=== PATIENT | female | born 1960 | race Caucasian/White ===

== ENCOUNTER → 2017-08-16 | Outpatient (REF) | payer BC ==
[2017-08-24 13:33] LABS: HPV HYBRID CAPTURE II Negative (Negative)
== END ==
LOC: M LAB REF 09:48
DX: Z01.419 Encounter for gynecological examination (general) (routine) without abnormal findings (principal); Z11.51 Encounter for screening for human papillomavirus (HPV)

== ENCOUNTER → 2017-09-24 | Outpatient (REF) | payer BC ==
[2017-09-24 12:38] LABS: TOTAL 25(OH) VITAMIN D 36.6 NG/ML (30.0-100.0)
[2017-09-24 12:49] LABS: ALBUMIN 3.6 GM/DL (3.2-5.2); ALBUMIN/GLOBULIN RATIO 1.03 (1.00-1.93); ALKALINE PHOSPHATASE 80 U/L (45-117); ALT/SGPT 40 U/L (12-78); ANION GAP 7 MEQ/L (8-16); AST/SGOT 21 U/L (7-37); BILIRUBIN,TOTAL 0.5 MG/DL (0.2-1.0); BLOOD UREA NITROGEN 13 MG/DL (7-18); CALCIUM LEVEL 9.2 MG/DL (8.5-10.1); CARBON DIOXIDE LEVEL 27 MEQ/L (21-32); CHLORIDE LEVEL 110 MEQ/L (98-107); CHOLESTEROL LEVEL 202 MG/DL (<200); CREATININE FOR GFR 0.69 MG/DL (0.55-1.30); GLOMERULAR FILTRATION RATE > 60.0 (>51); GLUCOSE, FASTING 95 MG/DL (70-100); HDL CHOLESTEROL 44 MG/DL (>40); NON-HDL-C 158 MG/DL; POTASSIUM SERUM 4.4 MEQ/L (3.5-5.1); SODIUM LEVEL 144 MEQ/L (136-145); THYROID STIMULATING HORMONE 0.254 uIU/ML (0.358-3.740); TOTAL PROTEIN 7.1 GM/DL (6.4-8.2); TRIGLYCERIDES LEVEL 145 MG/DL (<150)
[2017-09-24 13:02] LABS: BASO # 0.1 10^3/uL (0.0-0.2); BASO % 0.8 % (0.0-1.0); EOS # 0.2 10^3/uL (0.0-0.50); EOS % 3.4 % (0.0-3.0); HEMATOCRIT 44.8 % (36.0-47.0); HEMOGLOBIN 14.7 g/dl (12.0-15.5); LYMPH # 1.2 10^3/uL (1.5-4.5); LYMPH % 20.2 % (24.0-44.0); MEAN CORPUSCULAR HEMOGLOBIN 28.3 pg (27.0-33.0); MEAN CORPUSCULAR HGB CONC 32.8 g/dl (32.0-36.5); MEAN CORPUSCULAR VOLUME 86.3 fl (80.0-96.0); MONO # 0.6 10^3/uL (0.0-0.8); MONO % 9.4 % (0.0-5.0); NEUTROPHILS # 3.9 10^3/uL (1.8-7.7); NEUTROPHILS % 65.2 % (36.0-66.0); PLATELET COUNT, AUTOMATED 305 10^3/uL (150-450); RED BLOOD COUNT 5.19 10^6/uL (4.00-5.40); RED CELL DISTRIBUTION WIDTH 13.2 % (11.5-14.5); WHITE BLOOD COUNT 5.9 10^3/uL (4.0-10.0)
== END ==
LOC: M LABDRAW1 08:33
DX: Z00.00 Encounter for general adult medical examination without abnormal findings (principal)
CPT/HCPCS: 84443

== ENCOUNTER → 2019-09-16 | Outpatient (CLI) | payer BC ==
[2019-11-09 11:17] LABS: BASO # 0.1 10^3/uL (0.0-0.2); BASO % 0.9 % (0.0-1.0); EOS # 0.3 10^3/uL (0.0-0.5); EOS % 4.5 % (0.0-3.0); HEMATOCRIT 44.6 % (36.0-47.0); HEMOGLOBIN 14.4 g/dl (12.0-15.5); LYMPH % 30.3 % (24.0-44.0); MEAN CORPUSCULAR HEMOGLOBIN 27.6 pg (27.0-33.0); MEAN CORPUSCULAR HGB CONC 32.3 g/dl (32.0-36.5); MEAN CORPUSCULAR VOLUME 85.4 fl (80.0-96.0); MONO # 0.5 10^3/uL (0.0-0.8); MONO % 8.3 % (0.0-5.0); NEUTROPHILS # 3.6 10^3/uL (1.5-8.5); NEUTROPHILS % 55.8 % (36.0-66.0); PLATELET COUNT, AUTOMATED 325 10^3/uL (150-450); RED BLOOD COUNT 5.22 10^6/uL (4.00-5.40); WHITE BLOOD COUNT 6.5 10^3/uL (4.0-10.0)
[2019-11-09 11:18] LABS: ERYTHROCYTE SEDIMENTATION RATE 10 mm/hr (0-30)
[2019-11-11 02:39] LABS: ALT/SGPT 34 U/L (12-78); BILIRUBIN,TOTAL 0.7 MG/DL (0.2-1.0); BLOOD UREA NITROGEN 17 MG/DL (7-18); CALCIUM LEVEL 9.5 MG/DL (8.5-10.1); CARBON DIOXIDE LEVEL 28 MEQ/L (21-32); CHLORIDE LEVEL 109 MEQ/L (98-107); CREATININE FOR GFR 0.66 MG/DL (0.55-1.30); FREE T4 1.08 NG/DL (0.76-1.46); GLOMERULAR FILTRATION RATE > 60.0 (>51); GLUCOSE, FASTING 87 MG/DL (70-100); POTASSIUM SERUM 4.4 MEQ/L (3.5-5.1); RHEUMATOID FACTOR QUANT 20.5 IU/ML (<15.0); SODIUM LEVEL 140 MEQ/L (136-145); THYROID STIMULATING HORMONE 0.894 uIU/ML (0.358-3.740); TOTAL PROTEIN 7.6 GM/DL (6.4-8.2)
[2019-11-11 12:29] LABS: ANTINUCLEAR ANTIBODIES DIRECT See Separate Report
[2019-12-01 15:12] LABS: Lyme Disease IgG/IgM Antibodie See Separate Report
== END ==
LOC: M LAB 08:45
PROVIDERS: ATTEND Family Medicine
DX: R60.9 Edema, unspecified (principal)

== ENCOUNTER → 2019-09-29 | Outpatient (REF) | payer BC ==
[2019-09-29 16:34] LABS: ALBUMIN 3.9 GM/DL (3.2-5.2); ALT/SGPT 28 U/L (12-78); BILIRUBIN,TOTAL 0.6 MG/DL (0.2-1.0); BLOOD UREA NITROGEN 12 MG/DL (7-18); C REACTIVE PROTEIN QUANTITATIV 0.43 MG/DL (0.00-0.30); CALCIUM LEVEL 9.3 MG/DL (8.5-10.1); CARBON DIOXIDE LEVEL 29 MEQ/L (21-32); CHLORIDE LEVEL 108 MEQ/L (98-107); CREATININE FOR GFR 0.72 MG/DL (0.55-1.30); GLOMERULAR FILTRATION RATE > 60.0 (>51); GLUCOSE, FASTING 109 MG/DL (70-100); POTASSIUM SERUM 4.3 MEQ/L (3.5-5.1); RHEUMATOID FACTOR QUANT 22.1 IU/ML (<15.0); SODIUM LEVEL 140 MEQ/L (136-145); TOTAL PROTEIN 7.1 GM/DL (6.4-8.2)
[2019-09-30 23:25] LABS: ANTINUCLEAR ANTIBODIES DIRECT Negative (Negative); CYCLIC CITRULLINATED PEPTIDE 4 units (0-19)
== END ==
LOC: M LABDRWAD 09:13
PROVIDERS: ATTEND Family Medicine
DX: M25.461 Effusion, right knee (principal); M05.9 Rheumatoid arthritis with rheumatoid factor, unspecified

== ENCOUNTER → 2019-11-18 | Outpatient (REF) | payer BC ==
[2019-11-18 14:12] LABS: HEPATITIS B SURFACE ANTIBODY NEGATIVE (POSITIVE)
[2019-11-18 14:22] LABS: HEPATITIS B SURFACE ANTIGEN NEGATIVE (NEGATIVE)
[2019-11-18 14:49] LABS: HEPATITIS C VIRUS ABY INDEX 0.1 INDEX (<0.8)
== END ==
LOC: M SFHCRHEU 10:19
PROVIDERS: ATTEND Internal Medicine
DX: R76.8 Other specified abnormal immunological findings in serum (principal); R79.82 Elevated C-reactive protein (CRP)

== ENCOUNTER → 2019-12-17 | Outpatient (CLI) | payer BC ==
--- NOTE | 2019-12-17 13:08 | REP ---
INDICATION: INTERNAL DERANGEMENT RT KNEE. COMPARISON: Comparison radiographs of the right knee September 09, 2019.. TECHNIQUE: Axial, coronal and sagittal imaging planes utilized. T1, proton density and T2 weighted scans are obtained with and without fat saturation in the usual fashion. FINDINGS: Cortical and medullary bone signal intensity are normal. There is a small joint effusion and a small Edgar's cyst is seen in the posteromedial popliteal soft tissues. There is edema in the prepatellar and prepatellar tendon soft tissues question patellar tendinitis. The patellar tendon itself is intact. Quadriceps tendon is unremarkable. Anterior and posterior cruciate ligaments have an intact appearance. There is no evidence of medial or lateral collateral ligament disruption. There is an area of increased signal intensity in the posterior body of the right medial meniscus along its inferior articular margin consistent with an early tear in this location. This is visible on proton density and turbo spin echo T2 weighted scans. No displacement is scleral material is seen. Medial meniscus is otherwise unremarkable. No lateral meniscal tear is appreciated. There is chondromalacia in the medial femoral condyle mild in degree. No full-thickness articular cartilage lesion is appreciated. Study is otherwise unremarkable. IMPRESSION: Early tear pattern posterior body medial meniscus. Small amount of joint fluid and a small Edgar's cyst. Prepatellar and prepatellar tendon soft tissue edema consistent with patellar tendinitis. Mild chondromalacia pattern medial femoral condyle. <Electronically signed by Ilan Piña > 12/17/19 9490
== END ==
LOC: M RAD 11:15
PROVIDERS: ATTEND Internal Medicine
DX: M23.91 Unspecified internal derangement of right knee (principal); S83.241A Other tear of medial meniscus, current injury, right knee, initial encounter; X58.XXXA Exposure to other specified factors, initial encounter; Y92.89 Other specified places as the place of occurrence of the external cause

== ENCOUNTER → 2020-10-22 | Outpatient (CLI) | payer BC | LOC: M LABSMTC 10:34 | PROVIDERS: ATTEND Anesthesiology | DX: Z01.812 Encounter for preprocedural laboratory examination (principal); Z20.822 Contact with and (suspected) exposure to COVID-19 ==

== ENCOUNTER 2020-10-27 09:01 | Day surgery (SDC) | payer BC ==
[~2020-10-27] VITALS: Ht 162.6 cm; Wt 88.5 kg
[~2020-10-27 09:01] MED LIST: LIDOCAINE 2% 100MG/5ML SDV (FOR ANES.) As Ordered ONE; LR 1,000 ML IV ONE; MIDAZOLAM INJ 2MG/2ML VIAL (J2250 PER 1MG) As Ordered ONE; ceFAZolin SOD 1 GM in D5W MINI-BAG PLUS 50 ML IV ONE; propofoL 200 MG/20 ML VIAL As Ordered ONE
[2020-10-27] MEDS ORDERED: fentaNYL 100 MCG/2 ML INJECTION (J3010) As Ordered ONE (09:22)
[2020-10-27] MEDS ORDERED: BUPIVACAINE/EPIN 0.25% 30 ML VIAL As Ordered ONE (09:39)
[2020-10-27] MEDS ORDERED: PHENYLephrine 500MCG 5ML (100MCG/ML) SYRINGE As Ordered ONE (10:06)
[2020-10-27] MEDS ORDERED: ePHEDrine SULFATE 25 MG/5 ML(5MG/ML) SYRINGE As Ordered ONE (10:06)
--- NOTE | 2020-10-27 10:43 | ROOPDOC ---
[facility] Report Of Operation Report of Operation DATE OF PROCEDURE: 10/27/20 PREPROCEDURE DIAGNOSES: Right carpal tunnel syndrome. POSTPROCEDURE DIAGNOSES: Same. PROCEDURE PERFORMED: Right open carpal tunnel release. SURGEON: Dr. Jhon Villalba MD CAN MAKER: ANESTHESIA: Local/MAC Dr handy. ESTIMATED BLOOD LOSS: Approximately 5 mL. COMPLICATIONS: None. REMARKS: None. 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 We discussed the pros and cons risks and benefits of nonoperative versus right open carpal tunnel release. She wished to proceed. She had no further questions. I marked the right upper extremity.. DESCRIPTION OF PROCEDURE: Patient was brought to the operating theater. They were placed supine on the operating room table. Hand table was used. Limb was prepped and draped in the usual sterile fashion. I used chlorhexidine-based prep solution allowing over 3 minutes drying time prior to draping. 2 g of IV Ancef was given prior to starting the case. Local/MAC anesthesia was used. Preoperative timeout was performed confirming the site the patient and the surgery. I began by infiltrating 4 mL of 0.25 percent Marcaine with epinephrine in and around the proposed incision site. This was on the palmar surface just distal to the wrist crease longitudinally in line with the radial border fourth digit. The incision length was approximately 2 cm. I allowed the local anesthetic time to work. I carried the dissection down through skin and subcutaneous tissue to meticulous hemostasis. I incised the palmar fascia in line with the skin incision. I incised the transverse carpal ligament in line with the skin incision fully proximally and distally. Nerve appeared in continuity throughout the case. I thoroughly irrigated the wound with normal saline. I closed the subcutaneous tissues with 2-0 Vicryl sutures and the skin with 3-0 Ethilon in a horizontal mattress fashion. Wound cleaned with wet and dry dressing followed by application of non stick dressing, 4 x 8 gauze and overwrapped with Sajan type dressing. Patient was woken up from their sedation and transferred off the operating room table and taken to postanesthetic care unit in stable condition. All sponge, needle, instrument counts were correct. No complications. The patient is to start immediate hand wrist and elbow exercises but avoid heavy lifting and gripping-type activities for the first 6 weeks. They will be discharged home according to day surgery criteria. They can change the dressing postoperative day 1 and avoid showering over top or getting it wet for the first 14 days. Follow-up in the office in 2 weeks' time. Postoperative wound instructions were given. It was recommended to keep the wound clean and dry. Dressing changes as needed. It was reinforced with the patient that they should call us or be seen immediately for redness, drainage, or fever. Risk factors for harms from taking opioid medications discussed and assessed including but not limited to personal or family history of substance use disorder, anxiety or depression, , age 65 or older, COPD or other underlying respiratory conditions, and renal or hepatic insufficiency. Discussed with patient concerns and determined any harms they may experience or be currently experiencing such as nausea or constipation, feeling sedated or confused, breathing interruptions during sleep, or taking or craving more o pioids than prescribed or difficulty controlling use (addiction). Discussed early warning signs of overdose including confusion, sedation, slurred speech, abnormal gait. JHON VILLALBA MD Oct 27, 2020 10:43
[2020-10-27 11:10] VITALS: BP 149/73
== END 2020-10-27 11:43 | disposition home or self-care (01) ==
LOC: M SDC 09:01
PROVIDERS: ATTEND Orthopaedic Surgery Sports Medicine
DX: G56.01 Carpal tunnel syndrome, right upper limb (principal)
CPT/HCPCS: 64721; J0690; J2250; J2370; J3010

== ENCOUNTER → 2021-01-07 | Outpatient (CLI) | payer BC | LOC: M LABSMTC 11:11 | PROVIDERS: ATTEND Anesthesiology | DX: Z01.812 Encounter for preprocedural laboratory examination (principal); Z20.822 Contact with and (suspected) exposure to COVID-19 ==

== ENCOUNTER → 2021-01-12 | Day surgery (SDC) | payer BC ==
[~2021-01-12] VITALS: Ht 162.6 cm; Wt 91.1 kg
[~2021-01-12] MED LIST changes: +ACETAMINOPHEN 1000MG 100ML IV BTL (OFIRMEV) (J0131 PER 10MG) As Ordered ONE; +BUPIVACAINE/EPIN 0.25% 30 ML VIAL As Ordered ONE; +GLYCOPYRROLATE INJ 0.2 MG/ML 2 ML VIAL As Ordered ONE; +KETAMINE HCL 200 MG/20 ML VIAL As Ordered ONE; +KETOROLAC 60MG 2ML VIAL As Ordered ONE; +LIDOCAINE 1% MDV 20ML VIAL SQ PRN; +ONDANSETRON 4MG/2ML VIAL As Ordered ONE; -ceFAZolin SOD 1 GM in D5W MINI-BAG PLUS 50 ML IV ONE; +ceFAZolin SOD 2 GM in IV 1 EA IV ONE; +dexameTHASONE 4 MG/ML 1ML VIAL (J1100 PER 1MG) As Ordered ONE; +fentaNYL 100 MCG/2 ML INJECTION (J3010) As Ordered ONE
--- OUTSIDE RECORDS SUMMARY | 2021-01-12 12:44 | CCD ---
Author Author [facility] Organization [facility] Address Unknown Phone Unavailable Care Team Providers Care Potato Spotter Name Role Phone Babatunde Sheffield MD Unavailable Unavailable MollisonBabatunde MD Unavailable Unavailable MollisonBabatunde MD Unavailable Unavailable Mollison, Babatunde Ferreira MD Unavailable Unavailable MollisonBabatunde MD Unavailable Unavailable MollisonBabatunde MD Unavailable Unavailable MollisonBabatunde MD Unavailable Unavailable MollisonBabatunde MD Unavailable Unavailable Mollison, Babtaunde Ferreira MD Unavailable Unavailable Mollison, Babatunde Ferreira MD Unavailable Unavailable Mollison, Babatunde Ferreira MD Unavailable Unavailable Mollison, Babatunde Ferreira MD Unavailable Unavailable Mollison, Babatunde Ferreira MD Unavailable Unavailable Mollison, Babatunde Ferreira MD Unavailable Unavailable Mollison, Babatunde Ferreira MD Unavailable Unavailable MollisonBabatunde MD Unavailable Unavailable MollisonBabatunde MD Unavailable Unavailable MollisonBabatunde MD Unavailable Unavailable MollisonBabatunde MD Unavailable Unavailable MollisonBabatunde MD Unavailable Unavailable MollisonBabatunde MD Unavailable Unavailable MollisonBabatunde MD Unavailable Unavailable MollisonBabatunde MD Unavailable Unavailable MollisonBabatunde MD Unavailable Unavailable MollisonBabatunde MD Unavailable Unavailable Mollison, Babatunde Ferreira MD Unavailable Unavailable Mollison, Babatunde Ferreira MD Unavailable Unavailable Mollison, Babatunde Ferreira MD Unavailable Unavailable Mollison, Babatunde Ferreira MD Unavailable Unavailable Mollison, Babatunde Ferreira MD Unavailable Unavailable Mollison, Babatunde Ferreira MD Unavailable Unavailable Re-disclosure Warning The records that you are about to access may contain information from federally-assisted alcohol or drug abuse programs. If such information is present, then the following federally mandated warning applies: This information has been disclosed to you from records protected by federal confidentiality rules (42 CFR part 2). The federal rules prohibit you from making any further disclosure of this information unless further disclosure is expressly permitted by the written consent of the person to whom it pertains or as otherwise permitted by 42 CFR part 2. A general authorization for the release of medical or other information is NOT sufficient for this purpose. The Federal rules restrict any use of the information to criminally investigate or prosecute any alcohol or drug abuse patient.The records that you are about to access may contain highly sensitive health information, the redisclosure of which is protected by Article 27-F of the [facility] Public Health law. If you continue you may have access to information: Regarding HIV / AIDS; Provided by facilities licensed or operated by the [facility] Office of Mental Health; or Provided by the [facility] Office for People With Developmental Disabilities. If such information is present, then the following [facility] mandated warning applies: This information has been disclosed to you from confidential records which are protected by state law. State law prohibits you from making any further disclosure of this information without the specific written consent of the person to whom it pertains, or as otherwise permitted by law. Any unauthorized further disclosure in violation of state law may result in a fine or shelter sentence or both. A general authorization for the release of medical or other information is NOT sufficient authorization for further disc losure. Family History Family Member Name Family Member Gender Family Member Status Date o f Status Description Data Source(s) Unknown Unknown Problem MEDENT ([facility] Unknown Male Problem MEDENT ([facility] ) Encounters Encounter Providers Location Date Indications Data Source(s ) Outpatient Attender: Jhon Young/Mackenzie/Neeraj/Re indl 12/07/2020 08:45:00 AM EDT MEDENT ([facility]) Office Visit Attender: Jhon Young/Mackenzie/Neeraj/Re indl 11/09/2020 08:45:00 AM EDT MEDENT ([facility]) Outpatient [address] [facility], [facility] [address] 08/30/2020 12:00:00 AM EDT eCW1 ([facility]) Outpatient Attender: Jhon Young/Mackenzie/Neeraj/Re indl 08/16/2020 11:15:00 AM EDT MEDENT ([facility], ) Outpatient Attender: Jhon Young/Mackenzie/Neeraj/Re indl 07/13/2020 01:45:00 PM EDT MEDENT ([facility], ) Unknown [address] [facility] [address] 06/25/2020 12:00:00 AM EDT eCW1 ([facility]) Unknown [address] [facility] [place] [address] 04/14/2020 12:00:00 AM EST eCW1 ([facility]) Outpatient [address] [facility] [place] [address] 04/01/2020 12:00:00 AM EST eCW1 ([facility]) Unknown [address] [facility] [place] [address] 12/01/2019 12:00:00 AM EDT eCW1 ([facility]) Outpatient [address] [facility] [place] [address] 11/18/2019 12:00:00 AM EDT eCW1 ([facility]) Unknown [address] [facility] [place] [address] 11/17/2019 12:00:00 AM EDT eCW1 ([facility]) Medications Medication Brand Name Start Date Product Form Dose Route Admi nistrative Instructions Pharmacy Instructions Status Indications Reaction Description Data Source(s) No Active Medications 11/09/2020 12:00:00 AM EDT active MEDENT ([facility], ) Acetaminophen 325 MG / Oxycodone Hydrochloride 5 MG Or al Tablet [Percocet] Percocet 10/27/2020 12:00:00 AM EDT ORAL completed MEDENT ([facility], ) No Active Medications 07/13/2020 12:00:00 AM EDT completed MEDENT ([facility], ) Insurance Providers Payer name Policy type / Coverage type Policy ID Covered libertarian ID Covered libertarian's relationship to smith Policy Smith Plan Information BS [employer] [id number] Family Dependent [id number] BS [employer] [id number] Family Dependent [id number] [place] P[place] 302/307 [id number] BCBS RISHABH O [id number] SP [id number] [place] BCBS B [id number] S [id number] O UNAVAILABLE UNA[place]ILA BLE [place] 210/710 [id number] SP [id number] [place] 210/710 [id number] SP [id number] EXCELLUS BCBS B [id number] P VYS [id number] BS Of [facility] ([facility]) VYS2 [id number] Family Dependent [id number] BS Of [facility] ([facility]) VYS2 [id number] Family Dependent [id number] BS Of [facility] ([facility]) VYS2 [id number] Family Dependent [id number] BS Of [facility] ([facility]) VYS2 [id number] Family Dependent [id number] BS Of [facility] ([facility]) VYS2 [id number] Family Dependent [id number] [facility] [id number] SP [id number] BS Of [facility] Maintenance Organization (O) [id number] Family Dependent [facility] [id number] SP [id number] [place] O 302/307 [id number] SP [id number] Problems, Conditions, and Diagnoses Code Display Name Description Problem Type Effective Dates Data Source(s) R79.82 [id number] Elevated C-reactive protein (CRP) Prob lala 11/18/2019 12:00:00 AM EDT eCW1 ([facility]) M23.91 [id number] Internal derangement of right knee Pro blem 11/18/2019 12:00:00 AM EDT eCW1 ([facility]) I73.00 [id number] Raynaud's disease without gangrene Proble m 11/18/2019 12:00:00 AM EDT eCW1 ([facility]) M19.041 [id number] Primary osteoarthritis, right hand Pro blem 11/18/2019 12:00:00 AM EDT eCW1 ([facility]) M19.042 [id number] Primary osteoarthritis, left hand Prob lala 11/18/2019 12:00:00 AM EDT eCW1 ([facility]) Surgeries/Procedures Procedure Description Date Indications Data Source(s) OFFICE OUTPATIENT VISIT 25 MINUTES 12/07/2020 12:00:00 AM EDT MEDSUN ([facility], ) Neuroplasty/Transposition, Median Nerve AT Carpal Tunnel 10/27/2020 12:00:00 AM EDT MEDENT ([facility], ) OFFICE OUTPATIENT VISIT 25 MINUTES 08/16/2020 12:00:00 AM EDT MEDSUN ([facility], ) Needle electromyography, each extremity, with related paraspinal areas, when performed, done with nerve conduction, amplitude and latency/velocity study; complete, five or more muscles studied, innervated by three or more nerves or four or more spinal levels (list separately in addition to the code for primary procedure). 08/05/2020 12:00:00 AM EDT MEDEN T ([facility], ) Needle electromyography, each extremity, with related paraspinal areas, when performed, done with nerve conduction, amplitude and latency/velocity study; complete, five or more muscles studied, innervated by three or more nerves or four or more spinal levels (list separately in addition to the code for primary procedure). 08/05/2020 12:00:00 AM EDT MEDEN T ([facility], ) Needle Electromyography Non Extremity Done With Nerve Conduc tion 08/05/2020 12:00:00 AM EDT MEDENT ([facility], ) Needle Electromyography Non Extremity Done With Nerve Conduc tion 08/05/2020 12:00:00 AM EDT MEDENT ([facility], ) 00128 Nerve conduction studies 13 or more studies NEW 201208/05/2020 12:00:00 AM EDT MEDENT ([facility], ) OFFICE OUTPATIENT NEW 30 MINUTES 07/13/2020 12:00:00 A M EDT MEDENT ([facility], ) Results ID Date Data Source [id number] 01/07/2021 11:05:00 AM EST [facility] Name Value Range Interpretation Code Description Data Radha rce(s) Supporting Document(s) SARS-CoV-2 (COVID-19) RNA [Presence] in Respiratory specimen by СВЕТЛАНА with probe detection Not Detected [facility] This lab was ordered by [facility] and reported by [facility]. ID Date Data Source HEPATITIS B CORE ANTIBODY IGG 11/20/2019 09:32:55 AM EDT eCW 1 ([facility]) Name Value Range Interpretation Code Description Data Radha rce(s) Supporting Document(s) Negative HEPATITIS B CORE ANTIBODY IGG eCW1 ([facility]) ID Date Data Source HEPATITIS C ANTIBODY INDEX 11/18/2019 04:28:40 AM EDT eCW1 ( [facility]) Name Value Range Interpretation Code Description Data Radha rce(s) Supporting Document(s) 0.1 HEPATITIS C VIRUS HAIM INDEX eC W1 ([facility]) ID Date Data Source HEPATITIS B SURFACE ANTIGEN 11/18/2019 04:28:40 AM EDT eCW1 ([facility]) Name Value Range Interpretation Code Description Data Radha rce(s) Supporting Document(s) NEGATIVE HEPATITIS B SURFACE ANTIG EN eCW1 ([facility]) ID Date Data Source HEPATITIS B SURFACE ANTIBODY 11/18/2019 04:28:40 AM EDT eCW1 ([facility]) Name Value Range Interpretation Code Description Data Radha rce(s) Supporting Document(s) NEGATIVE HEPATITIS B SURFACE ANTIB FELICIA eCW1 ([facility]) ID Date Data Source C REACTIVE PROTEIN QUANTITATIV (At [facility]) 11/18/2019 04:28 :40 AM EDT eCW1 ([facility]) Name Value Range Interpretation Code Description Data Radha rce(s) Supporting Document(s) 0.30 C REACTIVE PROTEIN QUANTITATIV eCW1 ([facility]) Procedure Social History Code Duration Value Status Description Data Source(s ) Smoking 08/30/2020 12:00:00 AM EDT Former Smoker completed Former Smoker eCW1 ([facility]) Smoking 04/01/2020 12:00:00 AM EST Former Smoker completed Former Smoker eCW1 ([facility]) Smoking 04/01/2020 12:00:00 AM EST Former Smoker completed Former Smoker eCW1 ([facility]) Smoking 04/01/2020 12:00:00 AM EST Former Smoker completed Former Smoker eCW1 ([facility]) Smoking 11/18/2019 12:00:00 AM EDT Former Smoker completed Former Smoker eCW1 ([facility]) Smoking 11/18/2019 12:00:00 AM EDT Former Smoker completed Former Smoker eCW1 ([facility]) Smoking 11/18/2019 12:00:00 AM EDT Former Smoker completed Former Smoker eCW1 ([facility]) Vital Signs ID Date Data Source UNK Name Value Range Interpretation Code Description Data Source(s) Body temperature 98.4 [degF] 98.4 [degF] MEDENT ([facility], ) Body temperature 98.4 [degF] 98.4 [degF] MEDENT ([facility], ) Body temperature 97.7 [degF] 97.7 [degF] MEDENT ([facility], ) Body weight 195.4 [lb_av] 195.4 [lb_av] eCW1 ([facility]) Body weight 88.6 kg 88.6 kg eCW1 ([facility]) Body height 64 [in_i] 64 [in_i] eCW1 ([facility]) Body mass index (BMI) [Ratio] 33.54 kg/m2 33.54 kg/m2 eCW1 ([facility]) Heart rate 77 /min 77 /min eCW1 ([facility]) Respiratory rate 18 /min 18 /min eCW1 ([facility]) Body temperature 98.4 [degF] 98.4 [degF] eCW1 ( [facility]) Systolic blood pressure 152 mm[Hg] 152 mm[Hg] e CW1 ([facility]) Diastolic blood pressure 88 mm[Hg] 88 mm[Hg] eCW1 ([facility]) Body temperature 98.2 [degF] 98.2 [degF] MEDENT ([facility], ) Body temperature 98.2 [degF] 98.2 [degF] MEDENT ([facility]) Body temperature 97.1 [degF] 97.1 [degF] MEDENT ([facility], ) Body temperature 97.1 [degF] 97.1 [degF] MEDENT ([facility], ) Body weight 206.0 [lb_av] 206.0 [lb_av] eCW1 ([facility]) Body weight 93.4 kg 93.4 kg eCW1 ([facility]) Body height 64 [in_i] 64 [in_i] eCW1 ([facility]) Body mass index (BMI) [Ratio] 35.36 kg/m2 35.36 kg/m2 eCW1 ([facility]) Heart rate 90 /min 90 /min eCW1 ([facility]) Respiratory rate 18 /min 18 /min eCW1 ([facility]) Body temperature 97.1 [degF] 97.1 [degF] eCW1 ( [facility]) Systolic blood pressure 140 mm[Hg] 140 mm[Hg] e CW1 ([facility]) Diastolic blood pressure 86 mm[Hg] 86 mm[Hg] eCW1 ([facility]) Body weight 210.2 [lb_av] 210.2 [lb_av] eCW1 ([facility]) Body weight 95.3 kg 95.3 kg eCW1 ([facility]) Body height 64 [in_i] 64 [in_i] eCW1 ([facility]) Body mass index (BMI) [Ratio] 36.08 kg/m2 36.08 kg/m2 W1 ([facility]) Heart rate 87 /min 87 /min eCW1 ([facility]) Body temperature 98.2 [degF] 98.2 [degF] eCW1 ( [facility]) Systolic blood pressure 130 mm[Hg] 130 mm[Hg] e CW1 ([facility]) Diastolic blood pressure 68 mm[Hg] 68 mm[Hg] eCW1 ([facility])
--- OUTSIDE RECORDS SUMMARY | 2021-01-12 12:44 | CCD | Continuity of Care Document ---
Author Author Kailyn VILLALBA MD Organization Unknown Address [address] [place] [address] , [facility] [address] [place] [address] Phone [phone] Care Team Providers Care Disaster Or Damage Control Specialist Name Role Phone Araceli Barros D.O. AUTM [phone] Problems Description No Information Available Social History Type Date Description Comments Sex Unknown ETOH Use 1-2 A Month Tobacco Use Start: Unknown End: Unknown Patient is a former smoker Recreational Drug Use Denies Drug Use Allergies and adverse reactions Description No Known Drug Allergies Medications Active Medications SIG Qnty Indications Ordering Provide r Date No Active Medications Unknown 06/2020 History Medications Percocet 5-325mg Tablets 1 by mouth every 4 hours as needed post op pain 14tabs Peter Sharpe 10/27/2020 - 11/10/2019 No Active Medications Unknown 09/2020 - 10/27/2020 Immunizations Description No Information Available Vital Signs Date Vital Result Comment 12/07/2020 9:01am Body Temperature 98.4 F 12/07/2020 8:57am Body Temperature 98.4 F Results Description No Information Available Procedures Date Code Description Status 10/27/2020 34413 Neuroplasty/Transposition, Media n Nerve AT Carpal Tunnel Completed 08/16/2020 65927 Office/Outpatient Established Mo d MDM 30-39 Min Completed 07/13/2020 54569 Office/Outpatient New Low MDM 30 -44 Minutes Completed Medical Devices Description No Information Available Encounters Type Date Location Provider Dx Diagnosis Office Visit 12/07/2020 8:45a [facility]alba MD G56.01 Carpal tunnel syndrome, right upper limb Z47.89 Encounter for other orthoped ic aftercare Office Visit 11/09/2020 8:45a [facility] MD G56.01 Carpal tunnel syndrome, right upper limb Z47.89 Encounter for other orthoped ic aftercare Z48.02 Encounter for removal of sut ures Office Visit 08/16/2020 11:15a Damian Villalba MD G56.03 Carpal tunnel syndrome, bilateral upper limbs Office Visit 07/13/2020 1:45p Damian Villalba MD G56.03 Carpal tunnel syndrome, bilateral upper limbs Assessments Date Code Description Provider 12/07/2020 G56.01 Carpal tunnel syndrome, right up per limb Jhon Villalba MD 12/07/2020 Z47.89 Encounter for other orthopedic a ftkaterinaare Jhon Villalba MD 11/09/2020 G56.01 Carpal tunnel syndrome, right up per limb Jhon Villalba MD 11/09/2020 Z47.89 Encounter for other orthopedic a ftzehra Villalba MD 11/09/2020 Z48.02 Encounter for removal of sutures Jhon Villalba MD 10/27/2020 G56.01 Carpal tunnel syndrome, right up per limb Jhon Villalba MD 08/16/2020 G56.03 Carpal tunnel syndrome, bilatera l upper limbs Jhon Villalba MD 07/13/2020 G56.03 Carpal tunnel syndrome, bilatera l upper limbs Jhon Villalba MD Plan of Treatment No Information Available Functional Status Description No Information Available Mental Status Description No Information Available Referrals Refer to Dr Reason for Referral Status Appt Date Mic Alejo M.D. bilat upper extremities NCS/ EMG for assess carpal tunnel syndrome Closed [facility], [address] [place] [address] [phone]
--- OUTSIDE RECORDS SUMMARY | 2021-01-12 12:44 | CCD | Continuity of Care Document ---
Author Author Kailyn VILLALBA MD Organization Unknown Address [address] [place] [address] , [facility] [address] [place] [address] Phone [phone] Care Team Providers Care Merry Go Round Attendant Name Role Phone Araceli Barros D.O. AUTM Problems Description No Information Available Social History [...] Information Available Procedures Date Code Description Status 12/07/2020 23105 Office/Outpatient Established Mo d MDM 30-39 Min Completed 10/27/2020 78292 Neuroplasty/Transposition, Media n Nerve AT Carpal Tunnel Completed 08/16/2020 83925 Office/Outpatient Established Mo d MDM 30-39 Min Completed 07/13/2020 64140 Office/Outpatient New Low MDM 30 -44 Minutes Completed Medical Devices Description No Information Available Encounters Type Date Location Provider Dx Diagnosis Office Visit 12/07/2020 8:45a [facility] Jhon Villalba MD G56.01 Carpal tunnel syndrome, right upper limb Z47.89 Encounter for other orthoped ic aftercare G56.02 Carpal tunnel syndrome, left upper limb Office Visit 11/09/2020 8:45a [facility] Jhon Villalba MD G56.01 Carpal tunnel syndrome, right [...] 12/07/2020 Z47.89 Encounter for other orthopedic a ftzehra Villalba MD 12/07/2020 G56.02 Carpal tunnel syndrome, left upp er limb Jhon Villalba MD 11/09/2020 G56.01 Carpal tunnel [...] Description No Information Available Referrals Refer to Reason for Referral Status Appt Date Mic Alejo M.D. bilat upper extremities NCS/ EMG for assess carpal tunnel syndrome Closed [facility], [address] [place] [address] [phone]
--- OUTSIDE RECORDS SUMMARY | 2021-01-12 12:44 | CCD | Continuity of Care Document ---
Author Author Kailyn VILLALBA MD Organization Unknown Address [address] [place] [address] , [facility] 2 [place] [address] Phone [phone] Care Team Providers Care Cooling Pipe Inspector Name Role Phone Araceli Barros D.O. AUTM [phone] Problems Description No Information Available Social History [...] Available Vital Signs Date Vital Result Comment 11/09/2020 8:36am Body Temperature 97.7 F 08/16/2020 11:20am Body Temperature 98.2 F Results Description No Information Available Procedures Date Code Description Status 10/27/2020 58768 Neuroplasty/Transposition, Media n Nerve AT Carpal Tunnel Completed 08/16/2020 45202 Office/Outpatient Established Mo d MDM 30-39 Min Completed 07/13/2020 72484 Office/Outpatient New Low MDM 30 -44 Minutes Completed Medical Devices Description No Information Available Encounters Type Date Location Provider Dx Diagnosis Office Visit 11/09/2020 8:45a [facility] Villalba MD G56.01 Carpal tunnel syndrome, right upper limb Z47.89 Encounter for other orthoped ic aftercare Office Visit 08/16/2020 11:15a [facility] G56.03 Carpal tunnel syndrome, bilateral upper limbs Office Visit 07/13/2020 1:45p [facility] Jhon Villalba MD G56.03 Carpal tunnel syndrome, bilateral upper limbs Assessments Date Code Description Provider 11/09/2020 G56.01 Carpal tunnel syndrome, right up per limb Jhon Villalba MD 11/09/2020 Z47.89 Encounter for other orthopedic a ftercare Jhon Villalba MD 10/27/2020 G56.01 Carpal tunnel [...] NCS/ EMG for assess carpal tunnel syndrome [facility] [address] [place] [address] [phone]
--- OUTSIDE RECORDS SUMMARY | 2021-01-12 12:44 | CCD | Continuity of Care Document ---
Author Author Kailyn VILLALBA MD Organization Unknown Address [address] [place] [address] , [facility] 2 [place] [address] Phone [phone] Care Team Providers Care Hvac Design Engineer Name Role Phone Araceli Barros D.O. AUTM Problems Description No Information Available Social History Type Date Description Comments Sex Unknown ETOH Use 1-2 A Month Tobacco Use Start: Unknown End: Unknown Patient is a former smoker Recreational Drug Use Denies Drug Use Allergies, Adverse Reactions, Alerts Description No Known Drug Allergies Medications Active Medications SIG Qnty Indications Ordering Provide r Date Percocet 5-325mg Tablets 1 by mouth every 4 hours as needed post op pain 14tabs Peter Sharpe 10/27/2020 History Medications No Active Medications Unknown 09/2020 - 10/27/2020 Immunizations Description No Information Available Vital Signs Date Vital Result Comment 08/16/2020 11:20am Body Temperature 98.2 F 07/13/2020 2:03pm Body Temperature 97.1 F Results Description No Information Available Procedures Date Code Description Status 10/27/2020 09569 Neuroplasty/Transposition, Media n Nerve AT Carpal Tunnel Completed 08/16/2020 45556 Office/Outpatient Established Mo d MDM 30-39 Min Completed 07/13/2020 36421 Office/Outpatient New Low MDM 30 -44 Minutes Completed Medical Devices Description No Information Available Encounters Type Date Location Provider Dx Diagnosis Office Visit 08/16/2020 11:15a [facility] G56.03 Carpal tunnel syndrome, bilateral upper limbs Office Visit 07/13/2020 1:45p [facility] MD G56.03 Carpal tunnel syndrome, bilateral upper limbs Assessments Date Code Description Provider 10/27/2020 G56.01 Carpal tunnel syndrome, right up per limb Jhon Villalba MD 08/16/2020 G56.03 Carpal tunnel syndrome, bilatera l upper limbs Jhon Villalba MD 07/13/2020 G56.03 Carpal tunnel syndrome, bilatera l upper limbs Jhon Villalba MD Plan of Treatment Future Appointment(s):* 11/09/2020 8:45 am - Jhon Villalba MD at [facility] 08/16/2020 - Jhon Villalba MD* G56.03 Carpal tunnel syndrome, bilateral upper limbs Functional Status Description No Information Available Mental Status Description No Information Available Referrals Refer to Dr Reason for Referral Status Appt Date Mic Alejo M.D. bilat upper extremities NCS/ EMG for assess carpal tunnel syndrome Sent [facility], [address] [place] [id number] [phone]
--- OUTSIDE RECORDS SUMMARY | 2021-01-12 12:44 | CCD | Continuity of Care Document ---
Author Author Kailyn VILLALBA MD Organization Unknown Address [address] [place] [address] , [facility] 2 [place] [address] Phone [phone] Care Team Providers Care Space Studies Faculty Member Name Role Phone Araceli Barros D.O. AUTM [...] Available Procedures Date Code Description Status 10/27/2020 92581 Neuroplasty/Transposition, Media n Nerve AT Carpal Tunnel Completed 08/16/2020 20490 Office/Outpatient Established Mo d MDM 30-39 Min Completed 07/13/2020 26998 Office/Outpatient New Low MDM 30 -44 Minutes Completed Medical Devices Description No Information Available Encounters Type Date Location Provider Dx Diagnosis Office Visit 11/09/2020 8:45a [facility] Jhon Villalba MD G56.01 Carpal tunnel syndrome, right upper limb Z47.89 Encounter for other orthoped ic aftercare Z48.02 Encounter for removal of sut ures Office Visit 08/16/2020 11:15a [facility] Jhon Villalba MD G56.03 Carpal tunnel syndrome, bilateral upper limbs Office Visit 07/13/2020 1:45p [facility] Jhon Villalba MD G56.03 Carpal tunnel syndrome, bilateral upper limbs Assessments Date Code Description Provider 11/09/2020 G56.01 Carpal tunnel syndrome, right up per limb Jhon Villalba MD 11/09/2020 Z47.89 Encounter for other orthopedic a ftercare Jhon Villalba MD 11/09/2020 Z48.02 Encounter for removal of sutures Jhon Villalba MD 10/27/2020 G56.01 Carpal tunnel syndrome, right up per limb Jhon Villalba MD 08/16/2020 G56.03 Carpal tunnel syndrome, bilatera l upper limbs Jhon Villalba MD 07/13/2020 G56.03 Carpal tunnel syndrome, bilatera l upper limbs Jhon Villalba MD Plan of Treatment Future Appointment(s):* 12/07/2020 8:45 am - Jhon Villalba MD at [facility] 11/09/2020 - Jhon Villalba MD* G56.01 Carpal tunnel syndrome, right upper limb * Z47.89 Encounter for other orthopedic aftercare * Z48.02 Encounter for removal of sutures Functional Status Description No Information Available Mental Status Description No Information Available Referrals Refer to Dr Reason for Referral Status Appt Date Mic Alejo M.D. bilat upper extremities NCS/ EMG for assess carpal tunnel syndrome Closed [facility], [facility] [place] [address] [phone]
[2021-01-12 14:57] VITALS: BP 120/52
--- NOTE | 2021-01-12 15:04 | ROOPDOC ---
[facility] Report Of Operation Report of Operation DATE OF PROCEDURE: 01/12/21 PREPROCEDURE DIAGNOSES: Left carpal tunnel syndrome. POSTPROCEDURE DIAGNOSES: Same. PROCEDURE PERFORMED: Left open carpal tunnel release. SURGEON: Dr. Jhon Villalba MD EMPLOYEE BENEFITS INSURANCE AGENT:MD ANESTHESIA: Local/MAC Dr Marc ESTIMATED BLOOD LOSS: Approximately 5 mL. COMPLICATIONS: None. REMARKS: None. FINDINGS: Carpal tunnel syndrome SPECIMENS REMOVED: None PROCEDURE NOTE: This 60-year-old female with signs and symptoms consistent with left carpal tunnel syndrome. She wished to ahead with open carpal tunnel rele ase. Discussed the pros and cons risks and benefits of go ahead with surgery. She understood and wished to proceed. I marked the left upper extremity. She had no further questions.. DESCRIPTION OF PROCEDURE: Patient was brought to the operating theater. They were placed supine on the operating room table. Hand table was used. Limb was prepped and draped in the usual sterile fashion. I used chlorhexidine-based prep solution allowing over 3 minutes drying time prior to draping. 2 g of IV Ancef was given prior to starting the case. Local/MAC anesthesia was used. Preoperative timeout was performed confirming the site the patient and the surgery. I began by infiltrating 5 mL of 0.25 percent Marcaine with epinephrine in and around the proposed incision site. This was on the palmar surface just distal to the wrist crease longitudinally in line with the fourth digit. The incision phillip th was approximately 2 cm. I allowed the local anesthetic time to work. I carried the dissection down through skin and subcutaneous tissue to meticulous hemostasis. I incised the palmar fascia in line with the skin incision. I incised the transverse carpal ligament in line with the skin incision fully proximally and distally. Nerve appeared in continuity throughout the case. I thoroughly irrigated the wound with normal saline. I closed the subcutaneous tissues with 2-0 Vicryl sutures and the skin with 3-0 Ethilon in a horizontal mattress fashion. Wound cleaned with wet and dry dressing followed by application of non stick dressing, 4 x 8 gauze and overwrapped with Sajan type dressing. Patient was woken up from their sedation and transferred off the operating room table and taken to postanesthetic care unit in stable condition. All sponge, needle, instrument counts were correct. No complications. The patient is to start immediate hand wrist and elbow exercises but avoid heavy lifting and gripping-type activities for the first 6 weeks. They will be discharged home according to day surgery criteria. They can change the dressing postoperative day 1 and avoid showering over top or getting it wet for the first 14 days. Follow-up in the office in 2 weeks' time. Postoperative wound instructions were given. It was recommended to keep the wound clean and dry. Dressing changes as needed. It was reinforced with the patient that they should call us or be seen immediately for redness, drainage, or fever. Risk factors for harms from taking opioid medications discussed and assessed including but not limited to personal or family history of substance use disorder, anxiety or depression, , age 65 or older, COPD or other underlying respiratory conditions, and renal or hepatic insufficiency. Discussed with patient concerns and determined any harms they may experience or be currently experiencing such as nausea or constipation, feeling sedated or confused, breathing interruptions during sleep, or taking or craving more opioids than prescribed or difficulty controlling use (addiction). Discussed early warning signs of overdose including confusion, sedation, slurred speech, abnormal gait. . JHON VILLALBA MD Jan 12, 2021 15:04
== END | disposition home or self-care (01) ==
LOC: M SDC 12:39
PROVIDERS: ATTEND Orthopaedic Surgery Sports Medicine
DX: G56.02 Carpal tunnel syndrome, left upper limb (principal)
CPT/HCPCS: 64721; J0131; J0690; J1100; J1885; J2250; J2405; J3010

== ENCOUNTER → 2021-07-21 | Outpatient (REF) | payer BC ==
[2021-07-21 14:00] LABS: BASO # 0.1 10^3/uL (0.0-0.2); BASO % 1.1 % (0.0-1.0); EOS # 0.3 10^3/uL (0.0-0.5); EOS % 4.9 % (0.0-3.0); HEMATOCRIT 43.4 % (36.0-47.0); HEMOGLOBIN 14.1 g/dl (12.0-15.5); LYMPH # 1.9 10^3/uL (1.5-5.0); LYMPH % 35.7 % (24.0-44.0); MEAN CORPUSCULAR HEMOGLOBIN 28.3 pg (27.0-33.0); MEAN CORPUSCULAR HGB CONC 32.5 g/dl (32.0-36.5); MEAN CORPUSCULAR VOLUME 87.1 fl (80.0-96.0); MONO # 0.4 10^3/uL (0.0-0.8); MONO % 8.3 % (2.0-8.0); NEUTROPHILS # 2.7 10^3/uL (1.5-8.5); NEUTROPHILS % 49.8 % (36.0-66.0); PLATELET COUNT, AUTOMATED 263 10^3/uL (150-450); RED BLOOD COUNT 4.98 10^6/uL (4.00-5.40); WHITE BLOOD COUNT 5.3 10^3/uL (4.0-10.0)
[2021-07-21 14:51] LABS: ALBUMIN 3.6 GM/DL (3.2-5.2); ALT/SGPT 24 U/L (12-78); BILIRUBIN,TOTAL 0.5 MG/DL (0.2-1.0); BLOOD UREA NITROGEN 11 MG/DL (7-18); CALCIUM LEVEL 9.4 MG/DL (8.5-10.1); CARBON DIOXIDE LEVEL 28 MEQ/L (21-32); CHLORIDE LEVEL 107 MEQ/L (98-107); CHOLESTEROL LEVEL 232 MG/DL (<200); CHOLESTEROL RISK RATIO 4.142 (<5); CREATININE FOR GFR 0.74 MG/DL (0.55-1.30); FREE T4 1.08 NG/DL (0.76-1.46); GLOMERULAR FILTRATION RATE > 60.0 (>51); GLUCOSE, FASTING 96 MG/DL (70-100); HDL CHOLESTEROL 56 MG/DL (>40); LDL CHOLESTEROL 150 MG/DL (<100); NON-HDL-C 176 MG/DL; POTASSIUM SERUM 4.3 MEQ/L (3.5-5.1); SODIUM LEVEL 141 MEQ/L (136-145); TOTAL PROTEIN 6.8 GM/DL (6.4-8.2); TRIGLYCERIDES LEVEL 132 MG/DL (<150)
== END ==
LOC: M SFHCADAM 10:06
PROVIDERS: ATTEND Family Medicine
DX: Z00.00 Encounter for general adult medical examination without abnormal findings (principal)

== ENCOUNTER → 2021-08-19 | Outpatient (CLI) | payer BC | LOC: M WHC 10:21 | PROVIDERS: ATTEND Family Medicine | DX: Z12.31 Encounter for screening mammogram for malignant neoplasm of breast (principal) ==

== ENCOUNTER → 2023-07-19 | Outpatient (CLI) | payer BC ==
[2023-07-19 14:42] LABS: BASO # 0.1 10^3/uL (0.0-0.2); BASO % 0.9 % (0.0-1.0); EOS # 0.4 10^3/uL (0.0-0.5); EOS % 4.7 % (0.0-3.0); HEMATOCRIT 45.8 % (36.0-47.0); HEMOGLOBIN 15.2 g/dl (12.0-15.5); LYMPH # 1.7 10^3/uL (1.5-5.0); LYMPH % 22.6 % (24.0-44.0); MEAN CORPUSCULAR HEMOGLOBIN 28.7 pg (27.0-33.0); MEAN CORPUSCULAR HGB CONC 33.2 g/dl (32.0-36.5); MEAN CORPUSCULAR VOLUME 86.4 fl (80.0-96.0); MONO # 0.8 10^3/uL (0.0-0.8); MONO % 10.2 % (2.0-8.0); NEUTROPHILS # 4.6 10^3/uL (1.5-8.5); NEUTROPHILS % 61.3 % (36.0-66.0); PLATELET COUNT, AUTOMATED 307 10^3/uL (150-450); WHITE BLOOD COUNT 7.5 10^3/uL (4.0-10.0)
[2023-07-19 15:07] LABS: ALBUMIN 3.9 G/DL (3.2-5.2); ALKALINE PHOSPHATASE 92 U/L (46-116); ALT/SGPT 55 U/L (7.0-40); AST/SGOT 18 U/L (<34); BILIRUBIN,TOTAL 0.5 MG/DL (0.3-1.2); BLOOD UREA NITROGEN 16 MG/DL (9-23); CALCIUM LEVEL 10.5 MG/DL (8.3-10.6); CARBON DIOXIDE LEVEL 28 MMOL/L (20-31); CHLORIDE LEVEL 107 MMOL/L (98-107); CHOLESTEROL LEVEL 245 MG/DL (<200); CHOLESTEROL RISK RATIO 5.31 (<5); CREATININE FOR GFR 0.64 MG/DL (0.55-1.30); GLOMERULAR FILTRATION RATE > 60.0 (>45); GLUCOSE, FASTING 100 MG/DL (74-106); HDL CHOLESTEROL 46.1 MG/DL (>40); LDL CHOLESTEROL 128.5 MG/DL (<100); NON-HDL-C 198.9 MG/DL; POTASSIUM SERUM 4.8 MMOL/L (3.5-5.1); SODIUM LEVEL 140 MMOL/L (136-145); TOTAL PROTEIN 7.1 G/DL (5.7-8.2); TRIGLYCERIDES LEVEL 352 MG/DL (<150)
[2023-07-19 15:12] LABS: THYROID STIMULATING HORMONE 0.694 uIU/ML (0.55-4.78)
== END ==
LOC: M PLALAB 11:08
PROVIDERS: ATTEND Family Medicine
DX: Z00.00 Encounter for general adult medical examination without abnormal findings (principal)

== ENCOUNTER → 2023-08-02 | Outpatient (CLI) | payer BC | LOC: M SOG 07:51 | PROVIDERS: ATTEND Orthopaedic Surgery | DX: M16.11 Unilateral primary osteoarthritis, right hip (principal); M17.11 Unilateral primary osteoarthritis, right knee ==

== ENCOUNTER → 2024-08-26 | Outpatient (REF) | payer OTHER ==
[2024-08-26 13:28] LABS: ALT/SGPT 39 U/L (7.0-40); AST/SGOT 23 U/L (<34); BASO # 0.1 10^3/uL (0.0-0.2); BASO % 0.7 % (0.0-1.0); CALCIUM LEVEL 9.6 MG/DL (8.3-10.6); CARBON DIOXIDE LEVEL 29 MMOL/L (20-31); CHLORIDE LEVEL 106 MMOL/L (98-107); CHOLESTEROL LEVEL 227 MG/DL (<200); CHOLESTEROL RISK RATIO 4.75 (<5); CREATININE FOR GFR 0.72 MG/DL (0.55-1.30); EOS # 0.3 10^3/uL (0.0-0.5); EOS % 4.1 % (0.0-3.0); GLOMERULAR FILTRATION RATE > 90.0 (>45); LDL CHOLESTEROL 148.9 MG/DL (<100); LYMPH # 2.4 10^3/uL (1.5-5.0); LYMPH % 31.8 % (24.0-44.0); MONO # 0.6 10^3/uL (0.0-0.8); MONO % 7.9 % (2.0-8.0); NEUTROPHILS # 4.2 10^3/uL (1.5-8.5); NEUTROPHILS % 55.2 % (36.0-66.0); NON-HDL-C 179.3 MG/DL; PLATELET COUNT, AUTOMATED 324 10^3/uL (150-450); POTASSIUM SERUM 4.6 MMOL/L (3.5-5.1); SODIUM LEVEL 145 MMOL/L (136-145); TRIGLYCERIDES LEVEL 152 MG/DL (<150)
== END ==
LOC: M SFHCADAM 08:08
PROVIDERS: ATTEND Family Medicine
DX: Z00.00 Encounter for general adult medical examination without abnormal findings (principal)

== ENCOUNTER → 2024-10-01 | Outpatient (CLI) | payer OTHER ==
[2024-10-01 11:11] LABS: FREE T4 1.2 NG/DL (0.89-1.76)
== END ==
LOC: M PLALAB 08:30
PROVIDERS: ATTEND Family Medicine
DX: R79.89 Other specified abnormal findings of blood chemistry (principal)